=== PATIENT | male | born 1970 | race American Indian/Alaskan Native ===

== ENCOUNTER 2019-08-07 09:57 | Emergency (ER) | payer OTHER ==
[2019-08-07 10:11] VITALS: BP 141/88
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
== END 2019-08-07 13:06 | disposition home or self-care (01) ==
LOC: ED 09:57
DX: M79.18 Myalgia, other site (principal); V49.49XA Driver injured in collision with other motor vehicles in traffic accident, initial encounter; Y93.89 Activity, other specified; Y92.488 Other paved roadways as the place of occurrence of the external cause; Y99.8 Other external cause status
CPT/HCPCS: 99281